=== PATIENT | female | born 1995 | race African-American/Black ===

== ENCOUNTER 2021-06-25 17:17 | Emergency (ER) | payer MEDICAID, OTHER ==
[~2021-06-25] VITALS: Ht 157.5 cm; Wt 72.7 kg
--- NOTE | 2021-06-25 17:37 | PHYS DOC ---
General Adult EDM: Chief Complaint: ASTHMA HPI: HPI: Patient is a 26 year old female with a history of asthma, presented to ER for evaluation of asthmatic attack. Patient started having trouble breathing 2 days ago, she has used her inhaler and she ran out of her medication 2 days ago. Patient denies any cough, no chest pain, no abdominal pain, no nausea vomiting. Patient says she is getting out of her period Yesterday. Patient denies any cough, no chest pain. Patient is not vaccinated for COVID-19. Patient denies being exposed to anybody with COVID-19 infection. (TRI RAINES DO) Review of Systems: Review of Systems: Constitutional: Denies fever or chills. [] Eyes: Denies change in visual acuity. [] HENT: Denies nasal congestion or sore throat. [] Respiratory: Denies cough, positive for shortness of air and wheezing Cardiovascular: Denies chest pain or edema. [] GI: Denies abdominal pain, nausea, vomiting, bloody stools or diarrhea. [] : Denies dysuria. [] Musculoskeletal: Denies back pain or joint pain. [] Integument: Denies rash. [] Neurologic: Denies headache, focal weakness or sensory changes. [] Endocrine: Denies polyuria or polydipsia. [] Lymphatic: Denies swollen glands. [] Psychiatric: Denies depression or anxiety. [] (TRI RAINES DO) Heart Score: C/O Chest Pain: N/A Risk Factors: Risk Factors: DM, Current or recent (<one month) smoker, HTN, HLP, family history of CAD, obesity. Risk Scores: Score 0 - 3: 2.5% MACE over next 6 weeks - Discharge Home Score 4 - 6: 20.3% MACE over next 6 weeks - Admit for Clinical Observation Score 7 - 10: 72.7% MACE over next 6 weeks - Early Invasive Strategies (TRI RAINES DO) C/O Chest Pain: N/A (MARIBEL BARTLETT MD) Allergies: Allergies: Allergies Uncoded Allergies Type Severity Reaction Last Updated Verified pet dander Adverse Reaction Severe asthma trigger 06/25/21 (TRI RAINES DO) Physical Exam: PE: Constitutional: Well developed, well nourished, no acute distress, non-toxic appearance. [] HENT: Normocephalic, atraumatic, bilateral external ears normal, oropharynx moist, no oral exudates, nose normal. [] Eyes: PERRLA, EOMI, conjunctiva normal, no discharge. [] Neck: Normal range of motion, no tenderness, supple, no stridor. [] Cardiovascular:Heart rate regular rhythm, no murmur [] Lungs & Thorax: Bilateral breath sounds with expiratory and inspiratory wheezing to auscultation moderately. Abdomen: Bowel sounds normal, soft, no tenderness, no masses, no pulsatile masses. [] Skin: Warm, dry, no erythema, no rash. [] Back: No tenderness, no CVA tenderness. [] Extremities: No tenderness, no cyanosis, no clubbing, ROM intact, no edema. [] Neurologic: Alert and oriented X 3, normal motor function, normal sensory function, no focal deficits noted. [] Psychologic: Affect normal, judgement normal, mood normal. [] (TRI RAINES DO) EKG: EKG: [] (TRI RAINES DO) Radiology/Procedures: Radiology/Procedures: [] (TRI RAINES DO) Course & Med Decision Making: Course & Med Decision Making Pertinent Labs and Imaging studies reviewed. (See chart for details) Patient is a 26-year-old female who has a history of asthma, she presented to ER due to trouble breathing and wheezing. She had no cough, no fever. Patient ran out of her albuterol inhaler 2 days ago. Patient care has been endorsed to the incoming physician at shift change Dr. Maribel Bartlett. (TRI RAINES DO) Course & Med Decision Making Patient improved after nebulizer and Solu-Medrol. (MARIBEL BARTLETT MD) Dragon Disclaimer: Dragon Disclaimer: This electronic medical record was generated, in whole or in part, using a voice recognition dictation system. (TRI RAINES DO) Departure Departure Impression: Primary Impression: Exacerbation of asthma Disposition: HOME / SELF CARE / HOMELESS Condition: IMPROVED Referrals: FINA CHURCH (PCP) Patient Instructions: Asthma, Adult Scripts Albuterol Sulfate (PROAIR HFA INHALER) 8.5 Gm Hfa.aer.ad 2 PUFF IH PRN Q4-6HRS PRN for wheezing for 21 Days, #1 INHALER 2 Refills Prov: MARIBEL BARTLETT MD 06/25/21 Fluticasone Propionate (FLOVENT 110MCG HFA) 12 Gm Aer.w.adap 2 PUFF IH BID, #1 INHALER 2 Refills Prov: MARIBEL BARTLETT MD 06/25/21 TRI RAINES DO Jun 25, 2021 17:37 MARIBEL BARTLETT MD Jun 25, 2021 18:56
[2021-06-25] MEDS ORDERED: IPRATRPIUM/ALBUTEROL 0.5/2.5MG 3 ML NEBU. NEB ONE (17:45)
[2021-06-25] MEDS ORDERED: methylPREDNISolone SOD SUCC PF 125 MG/2 ML VIAL. IM ONE (17:45)
[2021-06-25] MEDS ORDERED: ALBU2.5V8 IH (18:56)
[2021-06-25] MEDS ORDERED: FLUT12AE IH (18:56)
[2021-06-25 19:00] VITALS: BP 109/73
== END 2021-06-25 19:00 | disposition home or self-care (01) ==
LOC: ER 17:17
DX: J45.909 Unspecified asthma, uncomplicated (principal); Z88.8 Allergy status to other drugs, medicaments and biological substances
CPT/HCPCS: 94640; 96372; 99283; J2930

== ENCOUNTER 2021-08-18 16:09 | Emergency (ER) | payer MEDICAID ==
[~2021-08-18] VITALS: Ht 157.5 cm; Wt 73.1 kg
[~2021-08-18 16:09] MED LIST: ALBU2.5V8 IH; FLUT12AE IH
--- NOTE | 2021-08-18 16:24 | PHYS DOC ---
Past Medical History Past Medical History: Asthma Past Surgical History: No Surgical History Smoking Status: Never Smoker Alcohol Use: None General Adult EDM: Chief Complaint: ASTHMA HPI: HPI: Patient is a 26 year old female with history of asthma who presents today complaining of shortness of breath that began today. Patient states she ran out of the inhaler. Denies any fever. She is unvaccinated but denies COVID19 Review of Systems: Review of Systems: Constitutional: Denies fever or chills. [] Eyes: Denies change in visual acuity. [] HENT: Denies nasal congestion or sore throat. [] Respiratory: Reports cough and shortness of breath. [] Cardiovascular: Denies chest pain or edema. [] GI: Denies abdominal pain, nausea, vomiting, bloody stools or diarrhea. [] : Denies dysuria. [] Musculoskeletal: Denies back pain or joint pain. [] Integument: Denies rash. [] Neurologic: Denies headache, focal weakness or sensory changes. [] Psychiatric: Denies depression or anxiety. [] Heart Score: C/O Chest Pain: N/A Risk Factors: Risk Factors: DM, Current or recent (<one month) smoker, HTN, HLP, family history of CAD, obesity. Risk Scores: Score 0 - 3: 2.5% MACE over next 6 weeks - Discharge Home Score 4 - 6: 20.3% MACE over next 6 weeks - Admit for Clinical Observation Score 7 - 10: 72.7% MACE over next 6 weeks - Early Invasive Strategies Allergies: Allergies: Allergies Uncoded Allergies Type Severity Reaction Last Updated Verified pet dander Adverse Reaction Severe asthma trigger 06/25/21 Physical Exam: PE: Constitutional: Well developed, well nourished, no acute distress, non-toxic appearance. [] HENT: Normocephalic, atraumatic, bilateral external ears normal, oropharynx moist, no oral exudates, nose normal. [] Eyes: PERRLA, EOMI, conjunctiva normal, no discharge. [] Neck: Normal range of motion, no tenderness, supple, no stridor. [] Cardiovascular:Heart rate regular rhythm, no murmur [] Lungs & Thorax: Tight chest, slight scattered wheezing posteriorly Abdomen: Bowel sounds normal, soft, no tenderness, no masses, no pulsatile masses. [] Skin: Warm, dry, no erythema, no rash. [] Back: No tenderness, no CVA tenderness. [] Extremities: No tenderness, no cyanosis, no clubbing, ROM intact, no edema. [] Neurologic: Alert and oriented X 3, normal motor function, normal sensory function, no focal deficits noted. [] Psychologic: Affect normal, judgement normal, mood normal. [] EKG: EKG: [] Radiology/Procedures: Radiology/Procedures: [] Course & Med Decision Making: Course & Med Decision Making Pertinent Labs and Imaging studies reviewed. (See chart for details) This is a 26-year-old female patient presenting to the ED today with shortness of breath that began today, she ran out of her inhaler, O2 sats 96% and above on room air. Patient was given a DuoNeb treatment, feeling better. Discharge home with albuterol inhaler. Follow-up with PCP in 1 week Saida Disclaimer: Saida Disclaimer: This electronic medical record was generated, in whole or in part, using a voice recognition dictation system. Departure Departure Impression: Primary Impression: Asthma exacerbation Qualified Codes: J45.21 - Mild intermittent asthma with (acute) exacerbation Disposition: HOME / SELF CARE / HOMELESS Condition: STABLE Referrals: NO PCP (PCP) Follow-up in 1 week with your doctor Patient Instructions: Asthma, Adult, [id number] Additional Instructions: You were seen for asthma exacerbation. Use your breathing treatments as needed for asthma symptoms. Follow-up with your doctor in 1 week. Come back to the ED at any point symptoms worsen Scripts Albuterol Sulfate (Proair Hfa) 8.5 Gm Hfa.aer.ad 2 PUFF IH PRN Q4-6HRS PRN for wheezing for 21 Days, #1 INHALER 3 Refills Prov: [employer] 08/18/21 [employer] Aug 18, 2021 16:24
[2021-08-18] MEDS ORDERED: IPRATRPIUM/ALBUTEROL 0.5/2.5MG 3 ML NEBU. NEB ONE (16:30)
[2021-08-18] MEDS ORDERED: ALBU2.5V8 IH (17:01)
[2021-08-18 17:10] VITALS: BP 127/73
== END 2021-08-18 17:22 | disposition home or self-care (01) ==
LOC: ER 16:09
DX: J45.21 Mild intermittent asthma with (acute) exacerbation (principal)
CPT/HCPCS: 94640; 99283